=== PATIENT | male | born 1965 | race Caucasian/White ===

== ENCOUNTER 2025-08-03 14:17 | Outpatient (REF) | payer MEDICARE, MEDICAID, SELFPAY ==
--- OUTSIDE RECORDS SUMMARY | 2025-08-03 13:30 | XMS_ITS | Encounter Summary ---
Author Organization [employer] Address [address] [place] [address] Care Team Providers Care Freezer Assistant Name Role Phone Yaritza Rivas [facility] Primary Care Provider [phone] Encounter Details Date Type Department Care Team (Late st Contact Info) Description 08/03/2025 1:30 PM EDT Office Visit [facility] [address] [place], [place] [phone] Yaritza Rivas FNP [address] [place], [place] [phone] Social History Tobacco Use Types Packs/Day Years Used Date Smoking Tobacco: Every Day Cigarettes Passive Smoke Exposure: Current Smokeless Tobacco: Current Housing Stability Answer Date Recorded What is your housing situation today? I have leyda yun 07/21/[address] you li ve. Do you have problems with any of the following? I am not sure 07/21/2025 Food Insecurity Answer Date Recorded Within the past 12 months, y ou worried that your food would run out before you got money to buy more: Sometimes True 2024 Within the past 12 months,th e food you bought just didn't last and you didn't have enough money to get more: Sometimes True 07/21/2025 Transportation Answer Date Recorded In the past 12 months, has l ack of transportation kept you from medical appts, meetings, work or from getting things needed for daily living? No 07/13/2025 Utilities Answer Date Recorded In the past 12 months, has t he electric, gas, oil or water company threatened to shut off services in your home? No 07/13/2025 Depression Answer Date Recorded Patient Health Questionnaire-2 Score 3 07/21/2025 Internet Access Answer Date Recorded Internet Access Q1 No 07/21/2025 Internet Access Q2 Not on file 07/21/2025 Sex and Gender Information Value Date Recorded Sex Assigned at Male 09/18/2022 10:38 AM EDT Legal Sex Male 10:38 AM EDT Gender Identity Choose not to disclose 10:38 AM EDT Sexual Orientation Choose not to disclose 2024 2:30 PM EDT Sexual Orientation Straight 06/29/2025 2: 30 PM EDT documented as of this encounter Last Filed Vital Signs Vital Sign Reading Time Taken Comments Blood Pressure 112/70 08/03/2025 1:35 PM EDT Pulse 75 08/03/2025 1:35 PM EDT Temperature 37.1 C (98.7 F) 08/03/2025 1:35 PM EDT Respiratory Rate 24 08/03/2025 1:35 PM EDT Oxygen Saturation 95% 08/03/2025 1:35 PM EDT Inhaled Oxygen Concentration - - Weight 121 kg (266 lb) 08/03/2025 1:35 PM EDT Height 181.3 cm (5' 11.36 ) 08/03/2025 1:35 PM E DT Body Mass Index 36.73 08/03/2025 1:35 PM EDT documented in this encounter Plan of Treatment Not on file documented as of this encounter Visit Diagnoses Not on filedocumented in this encounter Care Teams Freezer Assistant Relationship Specialty Start Date End Date Yaritza Rivas FNP [address] [place] [phone] PCP - General Family Medicine 07/21/25 documented as of this encounter
[2025-08-03 16:19] LABS: MANUAL DIFF FLAG NO
[2025-08-03 16:27] LABS: Hematocrit 42.1 % (42.0-52.0); Hemoglobin 14.2 g/dl (14.0-18.0); Imm Gran Abs Auto 0.05 X10*3/uL (0.00-0.03); Imm Gran Pct Auto 0.7 % (0.0-0.4); Lymphocytes Absolute Auto 1.9 X10*3/uL (1.2-4.9); Mean Corpuscular HGB Conc 33.7 g/dl (31.0-36.0); Mean Corpuscular Hemoglobin 29.3 pg (27.0-33.0); Mean Corpuscular Volume 86.8 fL (80.0-98.0); NRBC Abs Auto 0.000 X10*3/uL (0.0-0.012); NRBC Pct Auto 0.0 /100WBC (0.0-0.2); Platelet Count 224 X10*3/uL (160-400); Red Blood Count 4.85 X10*6/uL (4.60-5.80); White Blood Count 7.6 X10*3/uL (4.8-10.8)
[2025-08-03 16:33] LABS: Hemoglobin A1C 129.3347 umol/L; Total Hemoglobin (HGBA1C) 3695.7876 umol/L
[2025-08-03 16:55] LABS: Alanine Aminotransferase 32 U/L (0-40); Albumin Level 4.0 g/dL (3.5-5.0); Alkaline Phosphatase 66 U/L (39-117); Anion Gap 11 (12-20); Aspartate Amino Transferase 22 U/L (5-37); Blood Urea Nitrogen 11 mg/dL (9-16); Calcium 8.9 mg/dL (8.4-10.2); Carbon Dioxide 24 mmol/L (22-29); Chloride 112 mmol/L (96-108); Cholesterol 134 mg/dL (<200); Estimated Glomerular Filt Rate > 60; HDL Cholesterol 39 mg/dL (>40); Potassium 4.3 mmol/L (3.3-5.1); Sodium 143 mmol/L (135-145); Total Protein 6.5 g/dL (6.5-8.0); Triglycerides 119 mg/dL (<150)
[2025-08-03 16:57] LABS: Thyroid Stimulating Hormone 1.97 uIU/mL (0.32-4.0)
--- OUTSIDE RECORDS SUMMARY | 2025-08-03 19:46 | XMS_ITS | Encounter Summary ---
Author Organization [employer] Address [address] [facility] [address] [place] [address] Care Team Providers Care Sports Equipment Supervisor Name Role Phone Yaritza Rivas [facility] Primary Care Provider [phone] Reason for Visit * Reason Onset Date Comments Med Refill 07/28/2025 Encounter Details Date Type Department Care Team (Late st Contact Info) Description 07/28/2025 Refill [facility] [address] [place], [place] [phone] Yaritza Rivas FNP [address] [place], [place] [phone] Chronic pain of left knee (Primary Dx) Social History Tobacco Use Types Packs/Day Years [...] PM EDT documented as of this encounter Miscellaneous Notes * Telephone Encounter - Eliane Reyna RN - 07/28/2025 10:48 AM EDT During nurse visit today, pt reports pcp was going to send rx for meloxicam to [facility] on [address] in [place]. Pt confirms this is his preferred pharmacy. [facility] pharmacy advised him they did not have a rx for him. Advised request will be sent to pcp for review. documented in this encounter Plan of Treatment Not on file documented as of this encounter Visit Diagnoses Diagnosis Chronic pain of left knee- Primary documented in this encounter Care Teams Sports Equipment Supervisor Relationship Specialty Start Date End Date Yaritza Rivas FNP [address] [place] [phone] PCP - General Family Medicine 07/21/25 documented as of this encounter
--- OUTSIDE RECORDS SUMMARY | 2025-08-03 19:46 | XMS_ITS | Encounter Summary ---
Author Organization [employer] Address [address] [facility] [address] [place] [address] Care Team Providers Care Wire Loop Machine Operator Name Role Phone Yaritza Rivas [facility] Primary Care Provider [phone] Encounter Details Date Type Department Care Team (Latest Contact Info) Description 08/03/2025 Travel Social History Tobacco Use Types Packs/Day Years [...] PM EDT documented as of this encounter Plan of Treatment Not on file documented as of this encounter Visit Diagnoses Not on filedocumented in this encounter Care Teams Wire Loop Machine Operator Relationship Specialty Start Date End Date Yaritza Rivas FNP [address] [place] [phone] PCP - General Family Medicine 07/21/25 documented as of this encounter
--- OUTSIDE RECORDS SUMMARY | 2025-08-03 19:46 | XMS_ITS | Encounter Summary ---
Author Organization [employer] Address [address] [facility] [address] [place] [address] Care Team Providers Care County Attorney Name Role Phone Yaritza Rivas [facility] Primary Care Provider [phone] Reason for Visit * Reason Onset Date Comments CHARTPREP 07/30/2025 Encounter Details Date Type Department Care Team ([facility] st Contact Info) Description 07/30/2025 Telephone [facility] [address] [place], [place] [phone] Yaritza Rivas FNP [address] [place], [place] [phone] CHARTPREP Social History Tobacco Use Types Packs/Day Years [...] encounter Miscellaneous Notes * Telephone Encounter - Ekta Rich MA - 07/30/2025 11:48 AM EDT Chart Prep Labs: not done Images: not applicable Referrals: GI Notes are incomplete. Referral deferred. Referral will reappear in workque in 3 days.If notes are not complete by then message will be sent to provider. Optometry Vaccines due: Covid, Flu, Hep B, and Zoster Screenings: colonoscopy Overdue care gaps: Not applicable documented in this encounter Plan of Treatment Not on file documented as of this encounter Visit Diagnoses Not on filedocumented in this encounter Care Teams County Attorney Relationship Specialty Start Date End Date Yaritza Rivas FNP [address] [place] [phone] PCP - General Family Medicine 07/21/25 documented as of this encounter
--- OUTSIDE RECORDS SUMMARY | 2025-08-03 19:46 | XMS_ITS | Clinical Summary ---
Author Organization [employer] Address [address] [facility] [address] h Floor [place] [phone] Care Team Providers Care Merchandise Presentation Manager Name Role Phone Yaritza Rivas Primary Care Provider [phone] Allergies No known active allergies Medications meloxicam (Mobic) 15 MG tablet Take 1 tablet by mouth Once per day. 06/12/2025 Active Active Problems Problem Noted Date Diagnosed Date Class 2 obesity 07/21/2025 Encounters Date Type Department Care Team Description 08/03/2025 1:30 PM EDT Office Visit [facility] [address] [place] [phone] Yaritza Rivas FNP 08/03/2025 Travel 07/30/[address] [address] Yaritza Rivas FNP CHARTPREP 07/28/2025 10:30 AM EDT Clinical Support [address] [phone] Eliane Reyna RN Encounter for immunization 07/28/[address] [address] Yaritza Rivas FNP Chronic pain of left knee (Primary Dx) 07/28/2025 Travel 07/22/2025 Telephone [facility] [address] [place] [phone] Yaritza Rivas FNP Release form 07/21/2025 10:30 AM EDT Office Visit [facility] [address] [place] [phone] Yaritza Rivas FNP Adult wellness visit (Primary Dx); Dietary counseling; Exercise counseling; Anxiety; Class 2 obesity with body mass index (BMI) of 35.0 to 35.9 in adult, unspecified obesity type, unspecified whether serious comorbidity present; Vision changes; Chronic pain of left knee 07/21/2025 Travel 07/13/2025 Patient Outreach [facility] [address] [place] [address] Yaritza Rivas FNP Pre-visit Planning (SDOH negative, Tobacco screening positive. ) from Last 3 Months Immunizations Immunization Administration Dates Next Due Influenza, IIV3, injectable 08/30/2016, 0 Influenza, seasonal, injecta ble, preservative free 11/08/2012 Pneumococcal Conjugate PCV 20 07/28/2025 Tdap 07/28/2025,07/04/2009,10/23/2007 Social History Tobacco Use Types Packs/Day Years Used Date Smoking Tobacco: Every Day Cigarettes Passive Smoke Exposure: Current Smokeless Tobacco: Current Tobacco Cessation:Ready to Q uit: Not Asked; Counseling Given: Not Answered Housing Stability Answer Date Recorded What is [...] Orientation Straight 06/29/2025 2: 30 PM EDT Last Filed Vital Signs Vital Sign Reading [...] Mass Index 36.73 08/03/2025 1:35 PM EDT Plan of Treatment Health Maintenance Due Date Last Done Comments CT Colonography 1966 Colonoscopy 1966 Colorectal Cancer Screening 1966 FIT DNA/Cologuard 1966 FIT 1966 FOBT 1966 HIV Screening 1966 Sigmoidoscopy 1966 Hepatitis C Screening 1984 Hepatitis B Vaccines (1 of 3 - 19+ 3-dose series) 1985 Zoster Vaccines (1 of 2) 2016 COVID-19 Vaccine ( season) 2025 10/30/2022, 01/17/2022, 04/11/2021, Additional history exists Influenza Vaccine (#1) 2025 6, 11/08/2012, 11/29/2009 Alcohol/Substance Use Screening 07/21/2026 07/21/2025 Depression Screening 07/21/2026 07/21/2025, 07/21/20 Disability Screening 07/21/2026 07/21/2025 SDOH Screening 07/21/2026 07/21/2025 Tobacco Screening 08/03/2026 08/03/2025 Lipid Panel 08/03/2030 08/03/2025 DTaP/Tdap/Td Vaccines (4 - Td or Tdap) 07/28/2035 07/28/2025, 07/04/2009, 10/23/2007 RSV Patients and Patients Aged 60 years or older (1 - 1-dose 75+ series) 2041 Pneumococcal Vaccine: 50+ Years Completed 07/28/2025 HIB Vaccines Aged Out No longer eligi ble based on patient's age to complete this topic HPV Vaccines Aged Out No longer eligi ble based on patient's age to complete this topic Hepatitis A Vaccines Aged Out No long er eligible based on patient's age to complete this topic IPV Vaccines Aged Out No longer eligi ble based on patient's age to complete this topic Meningococcal B Vaccine Aged Out No l onger eligible based on patient's age to complete this topic Meningococcal Vaccine Aged Out No harrison fito eligible based on patient's age to complete this topic RSV under 20 months Aged Out No longe r eligible based on patient's age to complete this topic Rotavirus Vaccines Aged Out No longer eligible based on patient's age to complete this topic Procedures Procedure Name Priority Date/Time Associated Diagnosis Comments HEMOGLOBIN A1C Routine 08/03/2025 2:26 PM EDT Adult wellness visit LIPID PANEL, STANDARD Routine 08/03/2025 2:26 PM EDT Adult wellness visit CBC WITH AUTO DIFFERENTIAL Routine 08/03/2025 2:26 PM EDT Adult wellness visit TSH Routine 08/03/2025 2:26 PM EDT Adult wellness visit COMPREHENSIVE METABOLIC PANEL Routine 08/03/2025 2:26 PM EDT Adult wellness visit from Last 3 Months Results * (ABNORMAL) CBC auto differential (08/03/2025 2:26 PM EDT) White Blood Count 7.6 4.8 - 10.8 X10*3/uL [facility] Red Blood Count 4.85 4.60 - 5.80 X10*6/uL [facility] Hemoglobin 14.2 14.0 - 18.0 g/dl [facility] Hematocrit 42.1 42.0 - 52.0 % [facility] Mean Corpuscular Volume 86.8 80.0 - 98.0 fL [facility] Mean Corpuscular Hemoglobin 29.3 27.0 - 33.0 pg [facility] Mean Corpuscular HGB Conc 33.7 31.0 - 36.0 g/dl [facility] Red Cell Distribution Width 12.7 11.0 - 16.0 % [facility] Platelet Count 224 160 - 400 X10*3/uL [facility] Mean Platelet Volume 10.4 9.4 - 12.4 fL [facility] Neutrophils Percent Auto 61.8 45 - 73 % [facility] Imm Gran Pct Auto 0.7(H) 0.0 - 0.4 % [facility] Lymphocytes Percent Auto 25.2 20 - 40 % [facility] Monocytes Percent Auto 6.7 2 - 11 % [facility] Eosinophils Percent Auto 5.1(H) 0 - 4 % [facility] Basophils Percent Auto 0.5 0 - 2 % [facility] NRBC Pct Auto 0.0 0.0 - 0.2 /100WBC [facility] Neutrophils Absolute Auto 4.7 2.0 - 8.3 x10*3/uL [facility] Imm Gran Abs Auto 0.05(H) 0.00 - 0.03 X10*3/uL [facility] Lymphocytes Absolute Auto 1.9 1.2 - 4.9 X10*3/uL [facility] Monocytes Absolute Auto 0.5 0.1 - 1.2 X10*3/uL [facility] Eosinophils Absolute Auto 0.4 0.0 - 0.4 X10*3/uL [facility] Basophils Absolute Auto 0.0 0.0 - 0.2 X10*3/uL [facility] NRBC Abs Auto 0.000 0.0 - 0.012 X10*3/uL [facility] Blood Venous blood specimen / Unknown 08/03/2025 2:26 PM EDT 08/03/2025 4:08 PM EDT us Yaritza Okvickio COMMUNICATIONS ASSOCIATE LAB BLOOD ORDERABLES Final Res ult Performing Organization Address [facility] Co de Phone Number [facility] [address] [place] [phone] * TSH (08/03/2025 2:26 PM EDT) Thyroid Stimulating Hormone 1.97 0.32 - 4.0 uIU/mL [facility] Comment:TSH 3rd Generation ( [facility]) Blood Venous blood specimen / Unknown 08/03/2025 2:26 PM EDT 08/03/2025 4:08 PM EDT us Yaritza OkModernizing Medicineo COMMUNICATIONS ASSOCIATE LAB BLOOD ORDERABLES Final Res ult Performing Organization Address [facility] Phone Number [facility] [address] [place] [phone] * Hemoglobin A1c (08/03/2025 2:26 PM EDT) Hemoglobin A1c 5.4 <6.0 % [facility] Comment:Hemoglobin A1C Refer ence Range Adults: 4.8 - 6.0 % Non diabetic: < 6.0 % Goal: < 7.0 %Additional Action Suggested: > 8.0 %Note: Hemoglobin A1c results are invalid for patients with abnormal amounts of HbF. Blood transfusions may impact the HbA1c concentration in the patient sample. Estimated Average Glucose 108 mg/dL [facility] Comment:eAG = Estimated ave rage glucose which is %A1C expressed asaverage glucose, using the formula of the A0L-UkjqtfyOjoqypg Glucose study (ADAG), Diabetes Care, Vol.31,#8,Jun. 2007 Blood Venous blood specimen / Unknown 08/03/2025 2:26 PM EDT 08/03/2025 4:08 PM EDT us Yaritza OkModernizing Medicineo COMMUNICATIONS ASSOCIATE LAB BLOOD ORDERABLES Final Res ult Performing Organization Address [facility]/State/ZIP Co de Phone Number [facility] [address] [place] [phone] [phone] * (ABNORMAL) Lipid Panel, Standard (08/03/2025 2:26 PM EDT) Triglycerides 119 <150 mg/dL [facility] Comment:Desirable Triglyceri de: less than 150 mg/dLBorderline High Triglyceride 150-199 mg/dLHigh Triglyceride: 200-499 mg/dLVery High Triglyceride: greater than or equal to 5OO mg/dL Cholesterol 134 <200 mg/dL [facility] Comment:Desirable Cholestero l: less than 200 mg/dLBorderline High Cholesterol: 200-239 mg/dLHigh Cholesterol: greater than 239 mg/dL LDL Cholesterol Calculated 72 <100 mg/dL [facility] Comment:Desirable LDL: less than 100 mg/dLNear Optimal/Above Optimal LDL: 110- 129 mg/dLBorderline High LDL: 130-159 mg/dLHigh LDL: 160-189 mg/dLVery High LDL: greater than or equal to 190 mg/dL HDL Cholesterol 39(L) >40 mg/dL [facility] Comment:Desirable HDL: great er than 40 mg/dL Note: This HDL assay may give artificially low results in patients with liver disease. Blood Venous blood specimen / Unknown 08/03/2025 2:26 PM EDT 08/03/2025 4:08 PM EDT Yaritza Rivas [facility] BLOOD ORDERABLES Final Res ult [facility] [address] [place] [address] [phone] * (ABNORMAL) Comprehensive Metabolic Panel (08/03/2025 2:26 PM EDT) Sodium 143 135 - 145 mmol/L [facility] Potassium 4.3 3.3 - 5.1 mmol/L [facility] Chloride 112(H) 96 - 108 mmol/L [facility] Carbon Dioxide 24 22 - 29 mmol/L [facility] Anion Gap 11(L) 12 - 20 [facility] Urea Nitrogen (BUN) 11 9 - 16 mg/dL [facility] Creatinine, Serum 0.85 0.5 - 1.4 mg/dL [facility] Estimated Glomerular Filt Rate >60 [facility] Comment:Chronic Kidney Disea se: Estimated GFR < 60 mL/min/[id number] Kidney Disease: Estimated GFR < 15 mL/min/1.73m2 Glucose 98 60 - 115 mg/dL [facility] Calcium 8.9 8.4 - 10.2 mg/dL [facility] Bilirubin, Total 0.8 0.0 - 1.0 mg/dL [facility] Aspartate Amino Transferase 22 5 - 37 U/L [facility] Alanine Aminotransferase 32 0 - 40 U/L [facility] Total Protein 6.5 6.5 - 8.0 g/dL [facility] Albumin Level 4.0 3.5 - 5.0 g/dL [facility] Alkaline Phosphatase 66 39 - 117 U/L [facility] Blood Venous blood specimen / Unknown 08/03/2025 2:26 PM EDT 08/03/2025 4:08 PM EDT us Yaritza Rivas [facility] BLOOD ORDERABLES Final Res ult [facility] [address] [place] [address] [phone] from Last 3 Months Insurance [facility] STANDARD MEDICARE Care Teams Merchandise Presentation Manager Relationship Specialty Start Date End Date Yaritza Rivas FNP [address] [place] [phone] PCP - General Family Medicine 07/21/25
[2025-08-04 08:27] LABS: HIV Num 1 0.08 S/CO (0.00-0.99); ~HepC Num1 6.35 S/CO (0.00-0.79); ~Hepatitis C Antibody Reactive (Nonreactive)
[2025-08-05 14:24] LABS: HCV Log PCR <1.18 NOT DETECTED Log IU/mL (NOT DETECTED); HepC Viral Load <15 NOT DETECTED IU/mL (NOT DETECTED)
== END 2025-08-03 14:18 | disposition home or self-care (01) ==
LOC: HO.HHCL 14:17
PROVIDERS: PCP Nurse Practitioner Family; Visit Provider Nurse Practitioner Family
DX: Z00.00 Encounter for general adult medical examination without abnormal findings (principal); Z11.59 Encounter for screening for other viral diseases; Z11.4 Encounter for screening for human immunodeficiency virus [HIV]; Z13.6 Encounter for screening for cardiovascular disorders; Z13.29 Encounter for screening for other suspected endocrine disorder; Z13.0 Encounter for screening for diseases of the blood and blood-forming organs and certain disorders involving the immune mechanism
CPT/HCPCS: 36415; 80053; 80061; 83036; 84443; 85025; 86803; 87389; 87522